=== PATIENT | male | born 1990 | race Caucasian/White ===

== ENCOUNTER 2023-01-21 22:40 | Emergency (ER) | payer OTHER, MEDICAID ==
[2023-01-21] MEDS ORDERED: Acetaminophen/Butalbital/Caffeine 325-50-40 MG Tab PO PRN (23:52)
== END 2023-01-21 23:58 | disposition home or self-care (01) ==
LOC: VM.ED 22:40
DX: R51.9 Headache, unspecified (principal); Z88.6 Allergy status to analgesic agent; Z91.040 Latex allergy status; Z72.0 Tobacco use
CPT/HCPCS: 70450; 99283; 99284; A9270-GY

== ENCOUNTER 2023-01-23 15:43 | Emergency (ER) | payer MEDICAID ==
[2023-01-23] MEDS ORDERED: Methocarbamol 500 MG Tab PO ONE (16:13)
== END 2023-01-23 16:18 | disposition home or self-care (01) ==
LOC: VM.ED 15:43
DX: M54.50 Low back pain, unspecified (principal); F17.210 Nicotine dependence, cigarettes, uncomplicated; Z91.040 Latex allergy status; Z88.8 Allergy status to other drugs, medicaments and biological substances
CPT/HCPCS: 99283; A9270-GY

== ENCOUNTER 2023-01-24 12:20 | Emergency (ER) | payer MEDICAID ==
[2023-01-24] MEDS: Acetaminophen/Butalbital/Caffeine 325-50-40 MG Tab PO ONE (13:38)
== END 2023-01-24 13:59 | disposition home or self-care (01) ==
LOC: VM.ED 12:20
DX: R51.9 Headache, unspecified (principal); Z88.6 Allergy status to analgesic agent; Z91.040 Latex allergy status
CPT/HCPCS: 99283; A9270